=== PATIENT | male | born 1960 | race Caucasian/White ===

== ENCOUNTER 2018-07-23 13:08 | Emergency (ER) | payer OTHER ==
[~2018-07-23] VITALS: Ht 180.3 cm; Wt 118.8 kg
[2018-07-23] MEDS ORDERED: LASIX 40 MG TAB40 M2 PO (13:15)
[2018-07-23] MEDS ORDERED: COZAAR 50 MG TA50 M1 PO (13:16)
[2018-07-23] MEDS ORDERED: EXCEDRIN CAPLE1 EACH PO (13:16)
[2018-07-23] MEDS ORDERED: TOPROL XL25 MG PO (13:16)
[2018-07-23] MEDS ORDERED: HYDROCHLOROTHIA25 M2 PO (13:16)
[2018-07-23] MEDS ORDERED: POTASSIUM20 PO (13:16)
[2018-07-23] MEDS ORDERED: CLARITIN10 MG PO (13:17)
[2018-07-23] MEDS ORDERED: PROVIGIL 100 M100 M1 PO (13:19)
[2018-07-23] MEDS ORDERED: STIOLTO RESPIMAT4 GM INH (13:19)
[2018-07-23 13:38] LABS: ABSOLUTE EOSINOPHILS 0.1 thou/uL (0.0-0.7); ABSOLUTE LYMPHOCYTES 2.3 thou/uL (0.8-5.3); ABSOLUTE MONOCYTES 0.5 thou/uL (0.0-1.2); ABSOLUTE NEUTROPHILS 3.6 thou/uL (1.6-8.1); BASOPHILS 0.6 %; EOSINOPHILS 2.3 %; HEMATOCRIT 43.3 % (42.0-52.0); HEMOGLOBIN 15.1 gm/dL (14.0-18.0); LYMPHOCYTES 35.1 %; MCHC 34.8 g/dL (28.0-37.0); MCV 88.9 fL (80.0-100.0); MONOCYTES 7.8 %; MPV 7.1 fl. (7.2-11.1); NUCLEATED RBCS 0 /100WBC; PLATELET COUNT* 226 thou/uL (150-400); POLYS 54.2 %; RBC 4.87 mil/uL (4.50-6.00); RDW-CV 13.5 % (10.5-14.5); WBC 6.6 thou/uL (4.0-11.0)
[2018-07-23 13:59] LABS: ANION GAP 8 mmol/L (7-16); BUN 18 mg/dL (7-18); CALCIUM 9.4 mg/dL (8.5-10.1); CHLORIDE 105 mmol/L (98-107); CO2 29 mmol/L (21-32); CREATININE 1.2 mg/dL (0.6-1.3); GLUCOSE 105 mg/dL (70-99); POTASSIUM 3.5 mmol/L (3.5-5.1); SODIUM 142 mmol/L (136-145); TROPONIN-I LEVEL <0.06 ng/mL (<0.06)
[2018-07-23 14:05] LABS: ALBUMIN 3.7 g/dL (3.4-5.0); ALKALINE PHOSPHATASE 95 U/L (46-116); NT-PRO BRAIN NAT PEPTIDE 16 pg/mL (<300); SGOT 19 U/L (15-37); SGPT 28 U/L (30-65); TOTAL BILIRUBIN 0.3 mg/dL (<0.1-1.0); TOTAL PROTEIN 7.4 g/dL (6.4-8.2)
[2018-07-23] MEDS ORDERED: NITROGLYCERIN0.4 MG SUBLING (16:00)
[2018-07-23 16:22] VITALS: BP 148/84
--- NOTE | 2018-07-23 18:26 | EKG ---
[place] [address] ELECTROCARDIOGRAM REPORT Name: CHEMO COLE Room: [facility]#: [id number] Admission: 07/23/18 Attend Phys: Discharge: 07/23/18 Date of : 56 Report #: [id number] THIS REPORT FOR: //name// [facility] ED Test Date: 2018-07-23 Test Time: 13:11:52 Pat Name: CHEMO COLE Department: Room: Gender: M Gage Maker: ALEX : 1960 Requested By: Thu Bucio Order Number: [id number] MD: Polo Sahu Measurements Intervals [place] Rate: 74 P: 26 TN: 204 QRS: 35 QRSD: 96 T: 52 QT: 378 QTc: 420 Interpretive Statements Sinus rhythm Borderline prolonged TN interval Abnormal R-wave progression, early transition Baseline wander in lead(s) V2 No previous ECG available for comparison Electronically Signed On 07-23-2018 18:26:43 CDT by Polo Sahu [email or web address] <ELECTRONICALLY SIGNED> By: Polo Sahu MD, [facility] 07/23/18 1826 10 10 Polo Sahu MD, FAC /EPI
== END 2018-07-23 16:22 | disposition home or self-care (01) ==
LOC: M.ERS 13:08
PROVIDERS: Nurse Practitioner Family
DX: R07.89 Other chest pain (principal); I10 Essential (primary) hypertension; J44.9 Chronic obstructive pulmonary disease, unspecified

== ENCOUNTER 2021-05-11 12:35 | Emergency (ER) | payer BC, OTHER, MEDICAID ==
[~2021-05-11] VITALS: Ht 180.3 cm; Wt 109.8 kg
[~2021-05-11 12:35] MED LIST: CLARITIN10 MG PO; COZAAR 50 MG TA50 M1 PO; EXCEDRIN CAPLE1 EACH PO; HYDROCHLOROTHIA25 M2 PO; LASIX 40 MG TAB40 M2 PO; NITROGLYCERIN0.4 MG SUBLING; POTASSIUM20 PO; PROVIGIL 100 M100 M1 PO; STIOLTO RESPIMAT4 GM INH; TOPROL XL25 MG PO
[2021-05-11] MEDS ORDERED: CEPHALEXIN500 MG PO (15:30)
[2021-05-11 15:50] VITALS: BP 149/68
== END 2021-05-11 15:50 | disposition home or self-care (01) ==
LOC: M.ERS 12:35
DX: S61.042A Puncture wound with foreign body of left thumb without damage to nail, initial encounter (principal); I10 Essential (primary) hypertension; J44.9 Chronic obstructive pulmonary disease, unspecified; Z79.82 Long term (current) use of aspirin; Z79.899 Other long term (current) drug therapy; W34.00XA Accidental discharge from unspecified firearms or gun, initial encounter; Y93.89 Activity, other specified; Y92.89 Other specified places as the place of occurrence of the external cause; Y99.8 Other external cause status